=== PATIENT | male | born 1955 | race Hispanic/Latino ===

== ENCOUNTER 2017-06-22 13:55 | Emergency (ER) | payer MEDICARE, OTHER ==
[2017-06-22] MEDS ORDERED: KETOROLAC TROMETHAMINE 30MG/ML ONE (15:23)
[2017-06-22] MEDS ORDERED: ORPHENADRINE CITRATE 30 MG/ML ML ONE (15:23)
== END 2017-06-22 16:13 | disposition home or self-care (01) ==
LOC: EDH 13:55
DX: M54.32 Sciatica, left side (principal); E11.9 Type 2 diabetes mellitus without complications; Z95.1 Presence of aortocoronary bypass graft; Z98.890 Other specified postprocedural states; Z88.5 Allergy status to narcotic agent
CPT/HCPCS: 96372 ×2; 99284; J1885; J2360

== ENCOUNTER 2022-07-11 21:04 | Inpatient (IN) | payer MEDICARE, OTHER ==
[~2022-07-11] VITALS: Ht 170.2 cm; Wt 92.5 kg
[2022-07-11 21:59] LABS: BASOPHILS % (AUTO) 0.6 % (0.0-5.0); HEMATOCRIT 34.7 % (42-54); MEAN CORPUSCULAR HEMOGLOBIN 29.8 pg (27.0-33.0); MEAN CORPUSCULAR HGB CONC 33.1 g/dL (32.0-36.0); MEAN CORPUSCULAR VOLUME 89.9 fL (79-99); MONOCYTES % (AUTO) 6.4 % (3.0-13.0); NEUTROPHILS % (AUTO) 68.9 % (40.0-77.0); PLATELET COUNT (AUTO) 212 K/uL (130-400); RED BLOOD CELL COUNT(AUTO) 3.86 MIL/uL (4.50-6.20); RED CELL DISTRIBUTION WIDTH 13.8 % (11.0-15.5); WHITE BLOOD COUNT (AUTO) 7.9 K/uL (4.8-10.8)
[2022-07-11 22:13] LABS: CREATININE 1.7 mg/dL (0.5-1.5); POTASSIUM 3.7 mmol/L (3.5-5.1)
[2022-07-11 22:17] LABS: ALBUMIN 3.5 g/dL (3.5-5.0); TOTAL PROTEIN, SERUM 7.6 g/dL (6.0-8.3)
[2022-07-11 22:37] LABS: APPEARANCE,URINE CLEAR (CLEAR); BILIRUBIN,URINE NEGATIVE (NEGATIVE); COLOR,URINE LIGHT-YELLOW (YELLOW); GLUCOSE, URINE (UA) 500 mg/dL (NEGATIVE); KETONES,URINE NEGATIVE (NEGATIVE); LEUKOCYTE ESTERASE ,URINE 75 Leu/uL (NEGATIVE); NITRATE,URINE 2+ (NEGATIVE); OCCULT BLOOD,URINE NEGATIVE (NEGATIVE); PROTEIN,URINE 30 mg/dL (NEGATIVE); UROBILINOGEN,URINE 0.2 mg/dL (0.2-1.0)
[2022-07-11 22:40] LABS: BACTERIA,URINE MANY /HPF (None Seen); MUCUS,URINE RARE LPF (None Seen); RBC,URINE 0-1 /HPF (0-1); SQUAMOUS EPITHELIAL CELL,UR RARE /HPF (0-2)
[2022-07-11 23:17] LABS: AMMONIA 17 umol/L (11-32); CREATINE KINASE, TOTAL 389 U/L (21-232)
[2022-07-11 23:20] LABS: ACETAMINOPHEN < 1 mcg/mL (10-29); SALICYLATE < 2.8 mg/dL (2.8-20.0)
[2022-07-12 00:02] LABS: AMPHET/METH SCREEN,URINE NEGATIVE (NEGATIVE); BARBITURATE SCREEN, URINE NEGATIVE (NEGATIVE); BENZODIAZEPINES SCREEN,URINE NEGATIVE (NEGATIVE); CANNABINOID SCREEN,URINE NEGATIVE (NEGATIVE); COCAINE SCREEN,URINE NEGATIVE (NEGATIVE); OPIATE SCREEN,URINE NEGATIVE (NEGATIVE); PHENCYCLIDINE SCREEN,URINE NEGATIVE (NEGATIVE)
[2022-07-12] MEDS ORDERED: CEFTRIAXONE 1G VIAL IVP ONE (00:30)
[2022-07-12] MEDS ORDERED: MORPHINE 4 MG SYG IV PRN (01:00)
[2022-07-12] MEDS ORDERED: CEFTRIAXONE 1G VIAL IV SCH (01:00)
[2022-07-12] MEDS ORDERED: POTASSIUM CHLORIDE 20MEQ/100ML 100 ML IV PRN (01:00)
[2022-07-12] MEDS ORDERED: ONDANSETRON 4MG INJ IV PRN (01:00)
[2022-07-12] MEDS ORDERED: KCL 20 MEQ ERTAB PO PRN (01:00)
[2022-07-12] MEDS ORDERED: ACETAMINOPHEN 325 MG TAB PO PRN ×2 (01:00)
[2022-07-12] MEDS ORDERED: LIDOCAINE HCL-MPF 1% 2ML VIAL IV PRN (01:00)
[2022-07-12] MEDS ORDERED: MORPHINE 2 MG SYG IV PRN (01:00)
[2022-07-12] MEDS ORDERED: MAGNESIUM 2GM PREMIX 50ML 50 ML IV PRN (01:00)
[2022-07-12] MEDS ORDERED: ZOLPIDEM TARTRATE 5 MG TAB ONE (02:53)
[2022-07-12] MEDS: ZOSYN 3.375GM +NS 50ML IVPB SCH ×2 (03:07→16:39)
[2022-07-12] MEDS: ZOLPIDEM TARTRATE 5 MG TAB PO SCH ×2 (03:07→20:28)
[2022-07-12 04:46] VITALS: BP 154/87
[2022-07-12] MEDS ORDERED: ATOR40TA69 PO (04:49)
[2022-07-12] MEDS ORDERED: GABA300C PO (04:49)
[2022-07-12] MEDS ORDERED: TAMS-1 PO (04:50)
[2022-07-12] MEDS ORDERED: FAMO20TA8 PO (04:50)
[2022-07-12] MEDS ORDERED: METO-408 PO (04:51)
[2022-07-12] MEDS ORDERED: PARO-37 PO (04:52)
[2022-07-12] MEDS ORDERED: TICA90TA PO (04:54)
[2022-07-12] MEDS ORDERED: CHOL-34 PO (04:58)
[2022-07-12] MEDS ORDERED: LEVO112C4 PO (04:59)
[2022-07-12] MEDS ORDERED: GLIP10TA19 PO (04:59)
[2022-07-12] MEDS ORDERED: RISP0.5T66 PO (05:00)
[2022-07-12] MEDS ORDERED: BENZ-226 PO (05:04)
[2022-07-12] MEDS: INSULIN HUMULIN R 100 UNIT/ML 3ML SQ SCH ×4 (06:11→21:21)
[2022-07-12 06:45] LABS: BASOPHILS % (AUTO) 0.6 % (0.0-5.0); EOSINOPHILS % (AUTO) 3.7 % (0.0-8.0); HEMATOCRIT 32.1 % (42-54); LYMPHOCYTES % (AUTO) 24.6 % (21.0-51.0); MEAN CORPUSCULAR HEMOGLOBIN 29.6 pg (27.0-33.0); MEAN CORPUSCULAR VOLUME 87.2 fL (79-99); MONOCYTES % (AUTO) 9.7 % (3.0-13.0); NEUTROPHILS % (AUTO) 61.3 % (40.0-77.0); PLATELET COUNT (AUTO) 194 K/uL (130-400); RED BLOOD CELL COUNT(AUTO) 3.68 MIL/uL (4.50-6.20); RED CELL DISTRIBUTION WIDTH 13.6 % (11.0-15.5); WHITE BLOOD COUNT (AUTO) 7.8 K/uL (4.8-10.8)
[2022-07-12 06:53] LABS: HEMOGLOBIN A1C 8.1 % (4.0-6.0)
[2022-07-12 07:11] LABS: CREATININE 1.5 mg/dL (0.5-1.5); MAGNESIUM 1.6 mg/dL (1.80-2.40); PHOSPHORUS 2.9 mg/dL (2.5-4.9); POTASSIUM 3.6 mmol/L (3.5-5.1); THYROID STIMULATING HORMONE 5.66 uIU/mL (0.36-3.74)
[2022-07-12 08:00] VITALS: BP 166/96
[2022-07-12] MEDS: FAMOTIDINE 20MG TAB PO SCH (09:29)
[2022-07-12] MEDS: ENOXAPARIN SODIUM 40 MG/0.4 ML SYRINGE SQ SCH (09:29)
[2022-07-12 12:00] VITALS: BP 156/83
[2022-07-12 16:00] VITALS: BP 163/87
[2022-07-12] MEDS ORDERED: LORAZEPAM 1 MG TABLET PO ONE (18:30)
[2022-07-12] MEDS ORDERED: LORA2TAB80 PO (19:12)
[2022-07-12 20:26] VITALS: BP 159/91
[2022-07-12 23:17] VITALS: BP 148/68
[2022-07-13] MEDS: ZOSYN 3.375GM +NS 50ML IVPB SCH ×2 (03:04→16:07)
[2022-07-13 03:55] VITALS: BP 129/56
[2022-07-13 06:10] LABS: BASOPHILS % (AUTO) 0.6 % (0.0-5.0); HEMATOCRIT 32.3 % (42-54); LYMPHOCYTES % (AUTO) 29.8 % (21.0-51.0); MEAN CORPUSCULAR HEMOGLOBIN 29.9 pg (27.0-33.0); MEAN CORPUSCULAR HGB CONC 33.7 g/dL (32.0-36.0); MEAN CORPUSCULAR VOLUME 88.5 fL (79-99); MONOCYTES % (AUTO) 10.9 % (3.0-13.0); NEUTROPHILS % (AUTO) 54.6 % (40.0-77.0); PLATELET COUNT (AUTO) 203 K/uL (130-400); RED BLOOD CELL COUNT(AUTO) 3.65 MIL/uL (4.50-6.20); RED CELL DISTRIBUTION WIDTH 13.7 % (11.0-15.5)
[2022-07-13 06:21] LABS: CREATININE 1.6 mg/dL (0.5-1.5); POTASSIUM 3.6 mmol/L (3.5-5.1)
[2022-07-13] MEDS: INSULIN HUMULIN R 100 UNIT/ML 3ML SQ SCH ×4 (06:39→21:33)
[2022-07-13 07:30] VITALS: BP 156/77
[2022-07-13] MEDS: FAMOTIDINE 20MG TAB PO SCH (08:20)
[2022-07-13] MEDS: ENOXAPARIN SODIUM 40 MG/0.4 ML SYRINGE SQ SCH (08:24)
[2022-07-13] MEDS ORDERED: LEVOTHYROXINE 112 MCG TABLET PO SCH (09:00)
[2022-07-13] MEDS: TICAGRELOR 90 MG TABLET PO SCH ×2 (10:14→21:32)
[2022-07-13] MEDS: RISPERIDONE 0.5 MG TABLET PO SCH ×2 (10:14→21:31)
[2022-07-13] MEDS: ATORVASTATIN 40 MG TABLET PO SCH (10:14)
[2022-07-13] MEDS: METOPROLOL SUCCINATE 25 MG TAB.SR.24H PO SCH (10:15)
[2022-07-13] MEDS: GABAPENTIN 300 MG CAPSULE PO SCH (10:15)
[2022-07-13] MEDS: PAROXETINE HCL 20 MG TABLET PO SCH (10:15)
[2022-07-13] MEDS: TAMSULOSIN HCL 0.4 MG CAP.ER.24H PO SCH (10:15)
[2022-07-13 11:30] VITALS: BP 128/81
[2022-07-13 15:30] VITALS: BP 111/70
[2022-07-13] MEDS: POTASSIUM CHLORIDE 10% ELIXIR 20 MEQ/15 ML UDCUP PO PRN ×2 (17:28→19:29)
[2022-07-13 19:52] VITALS: BP 120/72
[2022-07-13] MEDS: QUETIAPINE FUMARATE 25 MG TAB PO SCH (21:31)
[2022-07-13] MEDS: ZOLPIDEM TARTRATE 5 MG TAB PO SCH (21:31)
[2022-07-13] MEDS: LORAZEPAM 2 MG TABLET PO SCH (21:31)
[2022-07-13 23:43] VITALS: BP 119/69
[2022-07-14] MEDS: ZOSYN 3.375GM +NS 50ML IVPB SCH ×2 (03:23→14:21)
[2022-07-14 03:28] VITALS: BP 90/48
[2022-07-14 04:26] VITALS: BP 96/56
[2022-07-14] MEDS: INSULIN HUMULIN R 100 UNIT/ML 3ML SQ SCH ×4 (06:16→21:01)
[2022-07-14 07:30] VITALS: BP 140/68
[2022-07-14] MEDS: RISPERIDONE 0.5 MG TABLET PO SCH ×2 (09:16→20:55)
[2022-07-14] MEDS: METOPROLOL SUCCINATE 25 MG TAB.SR.24H PO SCH (09:16)
[2022-07-14] MEDS: GABAPENTIN 300 MG CAPSULE PO SCH (09:16)
[2022-07-14] MEDS: ENOXAPARIN SODIUM 40 MG/0.4 ML SYRINGE SQ SCH (09:16)
[2022-07-14] MEDS: ATORVASTATIN 40 MG TABLET PO SCH (09:16)
[2022-07-14] MEDS: TAMSULOSIN HCL 0.4 MG CAP.ER.24H PO SCH (09:16)
[2022-07-14] MEDS: PAROXETINE HCL 20 MG TABLET PO SCH (09:16)
[2022-07-14] MEDS: FAMOTIDINE 20MG TAB PO SCH (09:16)
[2022-07-14] MEDS: TICAGRELOR 90 MG TABLET PO SCH ×2 (09:17→20:54)
[2022-07-14 11:30] VITALS: BP 125/62
[2022-07-14 15:30] VITALS: BP 142/76
[2022-07-14] MEDS: ZOLPIDEM TARTRATE 5 MG TAB PO SCH (20:54)
[2022-07-14] MEDS: QUETIAPINE FUMARATE 25 MG TAB PO SCH (21:00)
[2022-07-14] MEDS: LORAZEPAM 2 MG TABLET PO SCH (21:00)
[2022-07-15] MEDS ORDERED: LEVOTHYROXINE 112 MCG TABLET PO SCH (06:00)
== END 2022-07-14 22:30 | DRG 689 ==
LOC: EDH 21:04 → EDHIP 07-12 00:42 → 3BH 07-12 04:00
PROVIDERS: ADMIT Internal Medicine; ATTEND Internal Medicine
DX: N39.0 Urinary tract infection, site not specified (principal); R53.2 Functional quadriplegia; F03.92 Unspecified dementia, unspecified severity, with psychotic disturbance; F03.93 Unspecified dementia, unspecified severity, with mood disturbance; E11.9 Type 2 diabetes mellitus without complications; E03.9 Hypothyroidism, unspecified; F41.1 Generalized anxiety disorder; G89.29 Other chronic pain; I10 Essential (primary) hypertension; Z86.73 Personal history of transient ischemic attack (TIA), and cerebral infarction without residual deficits; Z95.1 Presence of aortocoronary bypass graft; Z88.5 Allergy status to narcotic agent; Z88.8 Allergy status to other drugs, medicaments and biological substances; Z79.84 Long term (current) use of oral hypoglycemic drugs
CPT/HCPCS: 36415; 70450; 71045; 73620; 80048; 80053; 80305; 81001; 82140; 82550; 82948; 83036; 83605; 83735; 83880; 84100; 84443; 85025; 87040; 87077; 87088; 87186; 97039; G0378; G0481; J0696; J1650; J1815; J2405; J2543; J3475